=== PATIENT | male | born 1985 | race Caucasian/White ===

== ENCOUNTER 2017-04-17 05:20 | Day surgery (SDC) | payer BC ==
[~2017-04-17] VITALS: Ht 188 cm; Wt 102.0 kg
[~2017-04-17 05:20] MED LIST: ADDERALL XR 1515 MG PO; ADDERALL15 MG PO; DIAZEPAM5 MG PO; ENBREL50 MG/1 ML SC; MOBIC7.5 MG PO; NEURONTIN300 MG PO; NORCO 5/3251 TABLET PO; PRILOSEC20 MG PO; ROBAXIN500 MG PO; ULTRAM ER200 MG PO; VENTOLIN HFA18 GM IH; VICODIN PO
[2017-04-17 06:12] VITALS: BP 134/93
[2017-04-17] MEDS ORDERED: NORCO 5/3251 TABLET PO (08:41)
[2017-04-17 10:30] VITALS: BP 139/75
[2017-04-17 11:26] VITALS: BP 118/73
[2017-04-17 12:10] VITALS: BP 117/70
== END 2017-04-17 12:23 | disposition home or self-care (01) ==
LOC: SDC 05:20
PROC: 0DNU4ZZ Release Omentum, Percutaneous Endoscopic Approach (ICD-10-PCS; principal; 2017-04-17)
DX: K66.0 Peritoneal adhesions (postprocedural) (postinfection) (principal); K64.4 Residual hemorrhoidal skin tags; I10 Essential (primary) hypertension; J45.909 Unspecified asthma, uncomplicated; K21.9 Gastro-esophageal reflux disease without esophagitis; E66.9 Obesity, unspecified; Z68.28 Body mass index [BMI] 28.0-28.9, adult; Z87.891 Personal history of nicotine dependence
CPT/HCPCS: 71020; J0330; J0690; J1100; J1170; J2250; J2405; J3010